=== PATIENT | female | born 1980 | race Caucasian/White ===

== ENCOUNTER → 2017-02-28 | Outpatient (CLI) | payer BC ==
[~2017-02-28] MED LIST: ADDERALL 20 MG20 MG PO; OMEPRAZOLE40 MG PO; STEROID PO; VITAMIN D1000 UNI1 PO; [UNRECOGNIZED DRUG - REMARK] PO
--- NOTE | 2017-02-28 14:29 | Diagnostic Imaging Report ---
PROCEDURE:X-RAY MODIFIED BARIUM SWALLOW COMPARISON:None. INDICATIONS:Dysphagia DISCUSSION:Fluoroscopic examination was performed in conjunction with speech pathology, during swallowing of a variety of thin and thick liquid consistencies. Examination showed no premature spillage to the vallecula, piriform sinus. No aspiration or penetration was noted. Trace vallecular and piriform sinus residue was noted following swallows of thin liquids. No pharyngeal wall or base of tongue residue CONCLUSION:Normal functional swallow. No aspiration or penetration.. Please see the report from speech pathology for complete details. Jesse Foster M.D. Dictated by: Jesse Foster M.D. on 02/28/2017 at 14:36 Electronically approved by: Jesse Foster M.D. on 02/28/2017 at 14:36
== END ==
LOC: DX 08:27
PROVIDERS: ATTEND Internal Medicine Gastroenterology
DX: R13.10 Dysphagia, unspecified (principal)
CPT/HCPCS: 74230

== ENCOUNTER 2018-06-10 17:25 | Emergency (ER) | payer BC ==
[~2018-06-10] VITALS: Ht 167.6 cm; Wt 70.3 kg
--- OUTSIDE RECORDS SUMMARY | 2018-06-10 17:27 | XMS REPORT | Clinical Summary ---
Author Author [facility] Address Unknown Phone Unavailable Care Team Providers Care Production Crew Supervisor Name Role Phone Georges Batres MD PCP Allergies Comments Active Allergy Reactions Severity Noted Date Azithromycin GI 06/20/2016 Intolerance Medications End Date Status Medication Sig Dispensed Refills Start Date Active traMADol-acetaminophen Take 1 tablet 0 (ULTRACET) 37.5-325 mg by mouth per tablet every 6 (six) hours as needed for moderate pain. Active Problems No known active problems Social History Date Tobacco Use Types Packs/Day Years Used Never Smoker Smokeless Tobacco: Never Used Alcohol Use Drinks/Week oz/Week Comments Yes 1 Glasses of 0.6 wine Sex Assigned at Date Recorded Not on file Industry Job Start Date Occupation Not on file Not on file Not on file Travel End Travel History Travel Start No recent travel history available. Last Filed Vital Signs Not on file Plan of Treatment Health Maintenance Due Date Last Done Comments CERVICAL CANCER SCREENING 2002 INFLUENZA VACCINE 10/11/2017 Results Not on fileafter 06/09/2017 Insurance Payer Benefit Subscriber ID Type Phone Address Plan / Group BCBS BCBS xxxxxxxxxxxx PPO CHOICE PPO/MICHAEL VANEGAS PPO Advance Directives Patient has advance care planning documents on file. For more information, jens jones contact: Sidney Taylor [address] [place] [address]
--- OUTSIDE RECORDS SUMMARY | 2018-06-10 17:27 | XMS REPORT ---
Author Author [facility] Address Unknown Phone Unavailable Care Team Providers Care Mft Name Role Phone TEE MAYER Unavailable Unavailable Problems This patient has no known problems. Allergies, Adverse Reactions, Alerts This patient has no known allergies or adverse reactions. Medications This patient has no known medications. Results Test Description Test Time Test Comments Text Results Atomic Results Result Comments MODIFIED BA. SWALLOW [facility] [address] [address] Patient Name: LAZARO MUÑOZ MR #: [id number] : 1980 Age/Sex: 36/F Req #: [id number] [facility] Physician: Ordered by: TEE MAYER MD Report #: [id number] Location: DX Room/Bed: Procedure: [id number] DX/MODIFIED BA. SWALLOW Exam Date: 02/28/17 Exam Time: 0900 REPORT STATUS: Signed PROCEDURE: X-RAY MODIFIED BARIUM SWALLOW COMPARISON: None. INDICATIONS: Dysphagia DISCUSSION: Fluoroscopic examination was performed in conjunction with speech pathology, during swallowing of a variety of thin and thick liquid consistencies. Examination showed no premature spillage to the vallecula, piriform sinus. No aspiration or penetration was noted. Trace vallecular and piriform sinus residue was noted following swallows of thin liquids. No pharyngeal wall or base of tongue residue CONCLUSION: Normal functional swallow. No aspiration or penetration.. Please see the report from speech pathology for complete details. Alfredo Foster M.D. Dictated by: Alfredo Foster M.D. on 02/28/2017 at 14:36 Electronically approved by: Alfredo Foster M.D. on 02/28/2017 at 14:36 Dictated By: ALFREDO FOSTER MD [id number] Transcribed By: AMOR on 02/28/17 1436 COPY TO: TEE MAYER MD
--- NOTE | 2018-06-10 17:33 | NUR ---
PT TO RADIOLOGY VIA WHEELCHAIR
[2018-06-10] MEDS ORDERED: TRAMADOL HCL 50 MG TAB PO ONE (18:00)
--- NOTE | 2018-06-10 18:00 | Diagnostic Imaging Report ---
Exam: Left ankle 3 views History: Pain Comparison: None. Findings: No fracture or malalignment. Joint spaces preserved. No abnormal soft tissue calcification or soft tissue defect. Impression: No acute osseous abnormality Signed by: Dr. Georges Floyd M.D. on 06/10/2018 5:56 PM
--- NOTE | 2018-06-10 18:23 | NUR ---
PT DISCHARGED FROM ER IN NAD, VERBALIZED UNDERSTANDING OF TEACHINGS, LEFT ANKLE AIR SPLINT APPLIED.
== END 2018-06-10 18:22 | disposition home or self-care (01) ==
LOC: ER 17:25
DX: S93.492A Sprain of other ligament of left ankle, initial encounter (principal); X50.1XXA Overexertion from prolonged static or awkward postures, initial encounter; Y92.008 Other place in unspecified non-institutional (private) residence as the place of occurrence of the external cause
CPT/HCPCS: 99283

== ENCOUNTER 2021-05-24 11:24 | Emergency (ER) | payer BC ==
[~2021-05-24] VITALS: Ht 170.2 cm; Wt 65.8 kg
[2021-05-24 12:14] LABS: BASOPHILS % 0.9 % (0.0-1.0); EOSINOPHILS # (AUTO) 0.1 (0.0-0.4); HEMATOCRIT 35.6 % (34.2-44.1); HEMOGLOBIN 10.9 g/dL (12.0-16.0); LYMPHOCYTES # (AUTO) 1.1 (1.0-3.2); LYMPHOCYTES % 24.2 % (18.0-39.1); MEAN CORPUSCULAR HGB CONC 30.6 g/dL (31-35); MEAN CORPUSCULAR VOLUME 88.1 fL (81-99); MONOCYTES # (AUTO) 0.2 (0.2-0.8); MONOCYTES % 5.3 % (4.4-11.3); NEUTROPHILS # (AUTO) 2.9 (2.1-6.9); NEUTROPHILS % 66.1 % (38.7-80.0); PLATELET COUNT 231 x10e3/uL (140-360); RED BLOOD COUNT 4.04 x10e6/uL (3.6-5.1); RED CELL DISTRIBUTION WIDTH 13.8 % (11.7-14.4)
[2021-05-24 12:30] LABS: INR 0.89; PROTHROMBIN TIME 12.9 seconds (11.9-14.5)
[2021-05-24 12:31] LABS: PARTIAL THROMBOPLASTIN TIME 28.1 seconds (23.8-35.5)
[2021-05-24 12:39] LABS: ALANINE AMINOTRANSFERASE 10 IU/L (0-55); ALBUMIN 3.6 g/dL (3.5-5.0); ALBUMIN/GLOBULIN RATIO 1.2 (0.8-2.0); ALKALINE PHOSPHATASE 34 IU/L (40-150); ANION GAP 12.1 mmol/L (8-16); BLOOD UREA NITROGEN 17 mg/dL (7-26); BUN/CREATININE RATIO 22 (6-25); CALCIUM 8.8 mg/dL (8.4-10.2); CARBON DIOXIDE 22 mmol/L (22-29); CHLORIDE 109 mmol/L (98-107); CREATINE KINASE 41 IU/L (29-168); CREATININE, SERUM 0.78 mg/dL (0.57-1.11); EST GLOMERULAR FILTRATION RATE 82 ML/MIN (60-); GLUCOSE 80 mg/dL (74-118); POTASSIUM 4.1 mmol/L (3.5-5.1); SODIUM 139 mmol/L (136-145)
[2021-05-24 12:57] LABS: MAGNESIUM 2.1 MG/DL (1.3-2.1)
[2021-05-24] MEDS ORDERED: IOPAMIDOL 370 MG/ML 200 ML INFUS..BTL INJ ONE (13:13)
[2021-05-24] MEDS ORDERED: SODIUM CHLORIDE 0.9% 100 ML ONE (13:13)
[2021-05-24 13:26] LABS: FREE THYROXINE INDEX 1.513 (1.4-3.8); THYROID STIMULATING HORMONE 1.008 uIU/mL (0.350-4.940)
[2021-05-24 14:17] VITALS: BP 120/77
== END 2021-05-24 14:19 | disposition home or self-care (01) ==
LOC: ER 11:35
DX: R07.89 Other chest pain (principal); R00.2 Palpitations; F41.9 Anxiety disorder, unspecified; F32.A Depression, unspecified
CPT/HCPCS: 36415; 71045; 71275; 80053; 82550; 82553; 83735; 84436; 84443; 84479; 84484; 84702; 85025; 85610; 85730; 93005; 99284; J7050; Q9967